=== PATIENT | male | born 1970 | race Caucasian/White ===

== ENCOUNTER 2017-03-17 15:49 | Emergency (ER) | payer BC ==
--- NOTE | 2017-03-17 16:04 | EDM.PDOC ---
ED HPI GENERAL MEDICAL PROBLEM - General Chief Complaint: Skin Complaint Stated Complaint: PT HAS LUMP ON BACK Time Seen by Provider: 03/17/17 15:55 Source of Information: Reports: Patient History Limitations: Reports: No Limitations - History of Present Illness INITIAL COMMENTS - FREE TEXT/NARRATIVE: History of present illness: []Patient had a small lump on his right lower back for years. 1 week ago it started getting larger, red, hot and tender. Denies any fevers or drainage. He saw Dr. Silver for it last week and was put on Keflex. The lesion has worsened, still without drainage. Review of systems: As per history of present illness and below otherwise all systems reviewed and negative. Past medical history: As per history of present illness and as reviewed below otherwise noncontributory. Surgical history: As per history of present illness and as reviewed below otherwise noncontributory. Social history: No reported history of drug or alcohol abuse. Family history: As per history of present illness and as reviewed below otherwise noncontributory. Physical exam: General: Well developed, well nourished in NAD HEENT: Atraumatic, normocephalic, pupils reactive, negative for conjunctival pallor or scleral icterus, mucous membranes moist, throat clear, neck supple, nontender, trachea midline. Lungs: Clear to auscultation, breath sounds equal bilaterally, chest nontender. Heart: S1S2, regular, negative for clicks, rubs, or JVD. Abdomen: Soft, nondistended, nontender. Negative for masses or hepatosplenomegaly. Negative for costovertebral tenderness. Back: Right lower back with 7 cm x 4 cm tender fluctuant lesion without drainage. Pelvis: Stable nontender. Genitourinary: Deferred. Rectal: Deferred. Extremities: Atraumatic, negative for cords or calf pain. Neurovascular unremarkable. Neuro: Awake, alert, oriented. Cranial nerves II through XII unremarkable. Cerebellum unremarkable. Motor and sensory unremarkable throughout. Exam nonfocal. Diagnostics: [] Therapeutics: []I&D of abscess right lower back Impression: []Infected Sebaceous cyst Plan: []Move packing tomorrow, continue Keflex, tramadol for pain, follow-up with Dr. Silver or return here if symptoms change or worsen Definitive disposition and diagnosis as appropriate pending reevaluation and review of above. lower back Pain Score (Numeric/FACES): 3 - Related Data Allergies Allergy/AdvReac Type Severity Reaction Status Date / Time Sulfa (Sulfonamide Allergy Hives Verified 03/17/17 16:01 Antibiotics) Home Meds: Home Meds Cephalexin 500 mg PO BID 03/17/17 [History] traMADol [Ultram] 50 mg PO Q8H PRN #12 tablet 03/17/17 [Rx] Social & Family History - Tobacco Use Smoking Status *Q: Current Every Day Smoker Years of Tobacco use: 20 - Recreational Drug Use Recreational Drug Use: No ED ROS GENERAL - Review of Systems Review Of Systems: See Below (See history of present illness) ED EXAM, SKIN/RASH Exam: See Below (See history of present illness) ED SKIN PROCEDURES - I&D Site: Low back Skin prep: Providone-Iodine (Betadine) Local anesthesia: Lidocaine: 1% Plain Local Anesthesia - Bupivicaine (Marcaine): 0.5% Plain Local Anesthetic Volume: 5cc Area Incised With: 11 Blade Drainage: Purulent, Large Amount Probed to Break Up Loculations: Yes Packed With: 1/4 in. Iodoform Sterile Dressinx4(s) Complications: No Course - Vital Signs Last Recorded V/S: Last Vital Signs Temp 36.8 C 03/17/17 16:01 Pulse 97 03/17/17 16:38 Resp 16 03/17/17 16:38 BP 168/107 H 03/17/17 16:38 Pulse Ox 96 03/17/17 16:38 - Orders/Labs/Meds Meds: Medications Discontinued Medications Generic Name Dose Route Start Last Admin Trade Name Bethany PRN Reason Stop Dose Admin Bupivacaine HCl 10 ml 03/17/17 16:05 03/17/17 16:38 Sensorcaine-Mpf 0.5% INJECT 03/17/17 16:06 10 ml ONETIME ONE Administration Bupivacaine HCl Confirm 03/17/17 16:12 Sensorcaine-Mpf 0.5% Administered 03/17/17 16:13 Dose 10 ml .ROUTE .STK-MED ONE Lidocaine HCl 20 ml 03/17/17 16:05 03/17/17 16:37 Xylocaine 1% INJECT 03/17/17 16:06 20 ml ONETIME ONE Administration Departure - Departure Time of Disposition: 16:39 Disposition: Home, Self-Care 01 Condition: good Clinical Impression: Abscess, Infected sebaceous cyst of skin - Discharge Information Prescriptions: traMADol [Ultram] 50 mg PO Q8H PRN #12 tablet PRN Reason: Pain Referrals: PCP,None [Primary Care Provider] - Forms: ED Department Discharge Additional Instructions: The following information is given to patients seen in the emergency department who are being discharged to home. This information is to outline your options for follow-up care. We provide all patients seen in our emergency department with a follow-up referral. The need for follow-up, as well as the timing and circumstances, are variable depending upon the specifics of your emergency department visit. If you don't have a primary care physician on staff, we will provide you with a referral. We always advise you to contact your personal physician following an emergency department visit to inform them of the circumstance of the visit and for follow-up with them and/or the need for any referrals to a consulting specialist. The emergency department will also refer you to a specialist when appropriate. This referral assures that you have the opportunity for follow-up care with a specialist. All of these measure are taken in an effort to provide you with optimal care, which includes your follow-up. Under all circumstances we always encourage you to contact your private physician who remains a resource for coordinating your care. When calling for follow-up care, please make the office aware that this follow-up is from your recent emergency room visit. If for any reason you are refused follow-up, please contact the [facility] Emergency Department at and asked to speak to the emergency department charge nurse. Continue Keflex as directed, tramadol and/or Motrin for pain, heat to area, remove packing tomorrow and follow-up with Dr. Silver as scheduled. Return here if any symptoms worsen or change. [facility] Primary [facility] [place] [id number]
[2017-03-17] MEDS ORDERED: Lidocaine 1% 20 ML MDV INJECT ONE (16:05)
[2017-03-17] MEDS ORDERED: Bupivacaine 0.5% 10 ML SDV INJECT ONE (16:05)
[2017-03-17] MEDS ORDERED: Bupivacaine 0.5% 10 ML SDV ONE (16:12)
[2017-03-17 16:39] VITALS: BP 168/107
== END 2017-03-17 17:05 | disposition home or self-care (01) ==
LOC: MW.ED 15:49
DX: L02.212 Cutaneous abscess of back [any part, except buttock and flank] (principal); L72.3 Sebaceous cyst; F17.210 Nicotine dependence, cigarettes, uncomplicated; Z88.2 Allergy status to sulfonamides
CPT/HCPCS: 10060; 99282; 99283

== ENCOUNTER 2017-04-06 13:00 | Emergency (ER) | payer BC ==
--- NOTE | 2017-04-06 13:29 | EDM.PDOC ---
ED HPI GENERAL MEDICAL PROBLEM - General Chief Complaint: Skin Complaint Stated Complaint: CYST ON HIS BACK Time Seen by Provider: 04/06/17 13:11 - History of Present Illness INITIAL COMMENTS - FREE TEXT/NARRATIVE: HISTORY AND PHYSICAL: History of present illness: Patient 46-year-old white male presents with a concern of cutaneous lesions to his right lower back he's had these prior they have been incised and drained on prior occasions and he has had recurrence he recently finished a course of Keflex he denies fever chills nausea vomiting Review of systems: As per history of present illness and below otherwise all systems reviewed and negative. Past medical history: As per history of present illness and as reviewed below otherwise noncontributory. Surgical history: As per history of present illness and as reviewed below otherwise noncontributory. Social history: No reported history of drug or alcohol abuse. Family history: As per history of present illness and as reviewed below otherwise noncontributory. Physical exam: HEENT: Atraumatic, normocephalic, pupils reactive, negative for conjunctival pallor or scleral icterus, mucous membranes moist, throat clear, neck supple, nontender, trachea midline. Lungs: Clear to auscultation, breath sounds equal bilaterally, chest nontender. Heart: S1S2, regular, negative for clicks, rubs, or JVD. Abdomen: Soft, nondistended, nontender. Negative for masses or hepatosplenomegaly. Negative for costovertebral tenderness. Pelvis: Stable nontender. Genitourinary: Deferred. Rectal: Deferred. Extremities: Atraumatic, negative for cords or calf pain. Neurovascular unremarkable. Neuro: Awake, alert, oriented. Cranial nerves II through XII unremarkable. Cerebellum unremarkable. Motor and sensory unremarkable throughout. Exam nonfocal. Skin: Patient is to mildly tender erythematous areas approximately 2 cm in diameter to the right lower back there is no significant induration there is mild erythema no significant fluctuance. Diagnostics: None Therapeutics: None Impression: #1 recurrent cutaneous lesions right back history of infected sebaceous cyst Definitive disposition and diagnosis as appropriate pending reevaluation and review of above. - Related Data Allergies Allergy/AdvReac Type Severity Reaction Status Date / Time Sulfa (Sulfonamide Allergy Hives Verified 03/17/17 16:01 Antibiotics) Home Meds: Home Meds Cephalexin 500 mg PO BID 03/17/17 [History] traMADol [Ultram] 50 mg PO Q8H PRN #12 tablet 03/17/17 [Rx] Past Medical History HEENT History: Reports: Hard of Hearing Cardiovascular History: Reports: None Respiratory History: Reports: None Gastrointestinal History: Reports: None Genitourinary History: Reports: None Musculoskeletal History: Reports: None Neurological History: Reports: None Psychiatric History: Reports: None Endocrine/Metabolic History: Reports: None Hematologic History: Reports: None Immunologic History: Reports: None Oncologic (Cancer) History: Reports: None Dermatologic History: Reports: None - Infectious Disease History Infectious Disease History: Reports: Chicken Pox - Past Surgical History HEENT Surgical History: Reports: Myringotomy w Tube(s) Social & Family History - Family History Family Medical History: Noncontributory - Tobacco Use Smoking Status *Q: Current Every Day Smoker Years of Tobacco use: 20 Packs/Tins Daily: 0.5 - Caffeine Use Caffeine Use: Reports: Soda - Recreational Drug Use Recreational Drug Use: No ED ROS GENERAL - Review of Systems Review Of Systems: ROS reveals no pertinent complaints other than HPI. ED EXAM, SKIN/RASH Exam: See Below (See dictation) Course - Vital Signs Text/Narrative:: I discussed with patient antibiotics expectant management with close follow-up with general surgery regarding recurrent nature of these and possible excision if not incision and drainage as indicated Departure - Departure Time of Disposition: 13:18 Disposition: Home, Self-Care 01 Condition: Good Clinical Impression: Cellulitis - Discharge Information Forms: ED Department Discharge Additional Instructions: The following information is given to patients seen in the emergency department who are being discharged to home. This information is to outline your options for follow-up care. We provide all patients seen in our emergency department with a follow-up referral. The need for follow-up, as well as the timing and circumstances, are variable depending upon the specifics of your emergency department visit. If you don't have a primary care physician on staff, we will provide you with a referral. We always advise you to contact your personal physician following an emergency department visit to inform them of the circumstance of the visit and for follow-up with them and/or the need for any referrals to a consulting specialist. The emergency department will also refer you to a specialist when appropriate. This referral assures that you have the opportunity for followup care with a specialist. All of these measure are taken in an effort to provide you with optimal care, which includes your followup. Under all circumstances we always encourage you to contact your private physician who remains a resource for coordinating your care. When calling for followup care, please make the office aware that this follow-up is from your recent emergency room visit. If for any reason you are refused follow-up, please contact the [facility] emergency department at and asked to speak to the emergency department charge nurse. [facility] - General Surgery Professional Building [address] [place] [address], [address] [place] [address] Clindamycin as prescribed keep scheduled appointment with general surgery on April 19 return as needed as discussed
== END 2017-04-06 13:50 | disposition home or self-care (01) ==
LOC: MW.ED 13:00
CPT/HCPCS: 99282; 99283

== ENCOUNTER 2017-10-26 03:36 | Emergency (ER) | payer BC ==
--- NOTE | 2017-10-26 04:04 | EDM.PDOC ---
ED HPI GENERAL MEDICAL PROBLEM - General Chief Complaint: Back Pain or Injury Stated Complaint: LEFT SIDE PAIN Time Seen by Provider: 10/26/17 04:04 Source of Information: Reports: Patient - History of Present Illness INITIAL COMMENTS - FREE TEXT/NARRATIVE: HISTORY AND PHYSICAL: History of present illness: [Patient presents with a posterior rib pain that began after a single cough episode over the last several days, I can reproduce pain posteriorly and at T5 distribution he has no fever nausea vomiting diarrhea constipation chest pain shortness breath headache dizziness or palpitation no bowel or urine symptoms ] Patient rates pain 7 out of 10 nonradiating, pain is keeping him awake at night which has prompted his visit tonight Review of systems: As per history of present illness and below otherwise all systems reviewed and negative. Past medical history: As per history of present illness and as reviewed below otherwise noncontributory. Surgical history: As per history of present illness and as reviewed below otherwise noncontributory. Social history: No reported history of drug or alcohol abuse. Family history: As per history of present illness and as reviewed below otherwise noncontributory. Physical exam: HEENT: Atraumatic, normocephalic, pupils reactive, negative for conjunctival pallor or scleral icterus, mucous membranes moist, throat clear, neck supple, nontender, trachea midline. Lungs: Clear to auscultation, breath sounds equal bilaterally, chest tenderness at T5 distribution on the left Heart: S1S2, regular, negative for clicks, rubs, or JVD. Abdomen: Soft, nondistended, nontender. Negative for masses or hepatosplenomegaly. Negative for costovertebral tenderness. Pelvis: Stable nontender. Genitourinary: Deferred. Rectal: Deferred. Extremities: Atraumatic, negative for cords or calf pain. Neurovascular unremarkable. Neuro: Awake, alert, oriented. Cranial nerves II through XII unremarkable. Cerebellum unremarkable. Motor and sensory unremarkable throughout. Exam nonfocal. Diagnostics: [Chest x-ray Rib 2 views on the left ] Therapeutics: [Azithromycin 500 mg by mouth daily #6 no refill Searsmont] Follow-up with primary care in [address] no contrast on outpatient basis radiology recommendation Impression: [Clinically question rib fracture Nodular density left posterior rib 5 Slight infiltrate on chest x-ray Small pleural effusion on the left] Definitive disposition and diagnosis as appropriate pending reevaluation and review of above. middle back Pain Score (Numeric/FACES): 8 - Related Data Allergies Allergy/AdvReac Type Severity Reaction Status Date / Time hydrochlorothiazide Allergy Rash Verified 10/26/17 03:48 Sulfa (Sulfonamide Allergy Hives Verified 10/26/17 03:48 Antibiotics) Home Meds: Home Meds . [No Known Home Meds] 10/26/17 [History] Past Medical History - Past Health History Medical/Surgical History: Denies Medical/Surgical History HEENT History: Reports: Hard of Hearing Cardiovascular History: Reports: Hypertension Respiratory History: Reports: None Gastrointestinal History: Reports: None Genitourinary History: Reports: None Musculoskeletal History: Reports: None Neurological History: Reports: None Psychiatric History: Reports: None Endocrine/Metabolic History: Reports: None Hematologic History: Reports: None Immunologic History: Reports: None Oncologic (Cancer) History: Reports: None Dermatologic History: Reports: None Other Dermatologic History: cysts on low back - Infectious Disease History Infectious Disease History: Reports: Chicken Pox - Past Surgical History HEENT Surgical History: Reports: Myringotomy w Tube(s) Social & Family History - Family History Family Medical History: Noncontributory - Tobacco Use Smoking Status *Q: Current Every Day Smoker Years of Tobacco use: 20 Packs/Tins Daily: 1 - Caffeine Use Caffeine Use: Reports: Soda - Recreational Drug Use Recreational Drug Use: No Drug Use in Last 12 Months: No ED ROS GENERAL - Review of Systems Review Of Systems: ROS reveals no pertinent complaints other than HPI. ED EXAM, GENERAL - Physical Exam Exam: See Below Course - Vital Signs Last Recorded V/S: Last Vital Signs Temp 98.5 F 10/26/17 03:36 Pulse 111 H 10/26/17 03:36 Resp 18 10/26/17 03:36 BP 154/89 H 10/26/17 03:36 Pulse Ox 94 L 10/26/17 03:36 - Orders/Labs/Meds Orders: Active Orders 24 hr Category Date Time Status Chest 2V [CR] Stat Exams 10/26/17 03:48 Taken Ribs 2V wo Chest Lt [CR] Stat Exams 10/26/17 04:17 Taken Meds: Medications Discontinued Medications Generic Name Dose Route Start Last Admin Trade Name Freq PRN Reason Stop Dose Admin Hydrocodone Bitart/Acetaminophen 1 tab 10/26/17 04:17 10/26/17 04:23 [place] 325-5 Mg PO 10/26/17 04:18 1 tab ONETIME ONE Administration Departure - Departure Time of Disposition: 04:57 Disposition: Home, Self-Care 01 Condition: Good Clinical Impression: Rib pain on left side, Pleural effusion, Nodular radiologic density, Pulmonary infiltrate on chest x-ray - Discharge Information Referrals: George Silver MD [Primary Care Provider] - Forms: ED Department Discharge Additional Instructions: Medication as prescribed Return if symptoms persist or worsen Follow-up with primary care provider in 2 weeks for a noncontrasted chest CT on an outpatient basis Radiology is recommending CT for a nodular density overlying the fifth posterior rib, this is in the same distribution of your pain [facility] [address] [place] [address] The following information is given to patients seen in the emergency department who are being discharged to home. This information is to outline your options for follow-up care. We provide all patients seen in our emergency department with a follow-up referral. The need for follow-up, as well as the timing and circumstances, are variable depending upon the specifics of your emergency department visit. If you don't have a primary care physician on staff, we will provide you with a referral. We always advise you to contact your personal physician following an emergency department visit to inform them of the circumstance of the visit and for follow-up with them and/or the need for any referrals to a consulting specialist. The emergency department will also refer you to a specialist when appropriate. This referral assures that you have the opportunity for follow-up care with a specialist. All of these measure are taken in an effort to provide you with optimal care, which includes your follow-up. Under all circumstances we always encourage you to contact your private physician who remains a resource for coordinating your care. When calling for follow-up care, please make the office aware that this follow-up is from your recent emergency room visit. If for any reason you are refused follow-up, please contact the [facility] emergency department at and asked to speak to the emergency department charge nurse. - My Orders Last 24 Hours: My Active Orders 10/26/17 03:48 Chest 2V [CR] Stat 10/26/17 04:17 Ribs 2V wo Chest Lt [CR] Stat - Assessment/Plan Last 24 Hours: My Active Orders 10/26/17 03:48 Chest 2V [CR] Stat 10/26/17 04:17 Ribs 2V wo Chest Lt [CR] Stat
[2017-10-26] MEDS ORDERED: Acetaminophen/HYDROcodone 325-5 MG Tab PO ONE (04:17)
[2017-10-26 05:12] VITALS: BP 164/96
--- NOTE | 2017-10-26 16:55 | CR ---
EXAM DATE: 10/26/17 PATIENT'S AGE: 47 Patient: [facility] Facility: [place], [place] Site . Site : 1970 Study: XRay Chest [id number]/[id number] 4:04:25 AM Ordering Physician: Doctor Maza Final Report: INDICATION: R side soreness, SOB, CP, smoker TECHNIQUE: Chest 2 views COMPARISON: September 05, 2012 FINDINGS: Cardiovascular and mediastinum: Heart size and vasculature are normal in caliber and appearance. Mediastinum is within normal limits. Lungs and pleural spaces: Left lower lobe consolidation. Small left-sided pleural effusion. Apparent nodular density overlying the 5th left posterior rib. No pneumothorax. Bones and soft tissues: Healed anterior left 2nd rib fracture. IMPRESSION: 1. Left lower lobe consolidation. Please correlate for signs of pneumonia. There is an associated small left-sided pleural effusion. 2. Apparent nodular density overlying the 5th left posterior rib. This is new compared to the previous examination of September 05, 2012. Recommend comparison with any more recent prior imaging of the chest and/or follow-up with unenhanced CT of the chest on an outpatient basis. Dictated by Thanh Galicia MD @ 10/26/2017 4:18:28 AM Dictated by: Thanh Galicia MD @ 10/26/2017 04:24:43 (Electronic Signature) Report Signed by Proxy. [facility] HOSPITALAicha
--- NOTE | 2017-10-26 16:56 | CR ---
EXAM DATE: 10/26/17 PATIENT'S AGE: 47 Patient: [facility] Facility: [place], [place] Site . Site : 1970 Study: XRay Chest Ribs 2v [id number] 4:39:32 AM Ordering Physician: Paula Solis Final Report: INDICATION: L side posterior rib pain TECHNIQUE: Three views of the left lower rib cage. COMPARISON: None. FINDINGS/IMPRESSION : Acute appearing left anterior 6th left rib and 7th left rib. Please see chest radiograph performed same day for further details. Dictated by Thanh Galicia MD @ 10/26/2017 5:07:34 AM Dictated by: Thanh Galicia MD @ 10/26/2017 05:07:45 (Electronic Signature) Report Signed by Proxy. [facility]
== END 2017-10-26 05:15 | disposition home or self-care (01) ==
LOC: MW.ED 03:36
DX: J90 Pleural effusion, not elsewhere classified (principal); R91.8 Other nonspecific abnormal finding of lung field; R07.81 Pleurodynia; F17.210 Nicotine dependence, cigarettes, uncomplicated; I10 Essential (primary) hypertension; Z88.2 Allergy status to sulfonamides; Z88.8 Allergy status to other drugs, medicaments and biological substances
CPT/HCPCS: 71046; 71100; 99283; A9270

== ENCOUNTER 2018-11-24 08:15 | Emergency (ER) | payer BC ==
--- NOTE | 2018-11-24 08:28 | EDM.PDOC ---
ED HPI GENERAL MEDICAL PROBLEM - General Chief Complaint: General Stated Complaint: COUGHING Time Seen by Provider: 11/24/18 08:23 - History of Present Illness INITIAL COMMENTS - FREE TEXT/NARRATIVE: HISTORY AND PHYSICAL: History of present illness: Patient's a 48-year-old white male who presents with concern of left rib injury he states he felt a muscle pull when he was coughing earlier today a similar episode approximately 1 year prior in which he thought he had sustained a rib fracture secondary to harsh coughing he denies shortness of breath he did take some Motrin prior to arrival is been no nausea vomiting fever chills he did receive influenza immunization this year. Review of systems: As per history of present illness and below otherwise all systems reviewed and negative. Past medical history: As per history of present illness and as reviewed below otherwise noncontributory. Surgical history: As per history of present illness and as reviewed below otherwise noncontributory. Social history: No reported history of drug or alcohol abuse. Family history: As per history of present illness and as reviewed below otherwise noncontributory. Physical exam: HEENT: Atraumatic, normocephalic, pupils reactive, negative for conjunctival pallor or scleral icterus, mucous membranes moist, throat clear, neck supple, nontender, trachea midline. Lungs: Clear to auscultation, breath sounds equal bilaterally, chest tenderness noted in the left posterior axillary region at the level of the seventh through ninth ribs. No crepitation. Heart: S1S2, regular, negative for clicks, rubs, or JVD. Abdomen: Soft, nondistended, nontender. Negative for masses or hepatosplenomegaly. Negative for costovertebral tenderness. Pelvis: Stable nontender. Genitourinary: Deferred. Rectal: Deferred. Extremities: Atraumatic, negative for cords or calf pain. Neurovascular unremarkable. Neuro: Awake, alert, oriented. Cranial nerves II through XII unremarkable. Cerebellum unremarkable. Motor and sensory unremarkable throughout. Exam nonfocal. Diagnostics: X-ray left ribs with chest Therapeutics: Hydrocodone 10 mg by mouth Impression: #1 muscle skeletal pain rule out left rib/intercostal injury Definitive disposition and diagnosis as appropriate pending reevaluation and review of above. - Related Data Allergies Allergy/AdvReac Type Severity Reaction Status Date / Time hydrochlorothiazide Allergy Rash Verified 11/24/18 08:27 Sulfa (Sulfonamide Allergy Hives Verified 11/24/18 08:27 Antibiotics) Home Meds: Home Meds . [No Known Home Meds] 10/26/17 [History] Past Medical History - Past Health History Medical/Surgical History: Denies Medical/Surgical History HEENT History: Reports: Hard of Hearing Cardiovascular History: Reports: Hypertension Respiratory History: Reports: None Gastrointestinal History: Reports: None Genitourinary History: Reports: None Musculoskeletal History: Reports: None Neurological History: Reports: None Psychiatric History: Reports: None Endocrine/Metabolic History: Reports: None Hematologic History: Reports: None Immunologic History: Reports: None Oncologic (Cancer) History: Reports: None Dermatologic History: Reports: None Other Dermatologic History: cysts on low back - Infectious Disease History Infectious Disease History: Reports: Chicken Pox - Past Surgical History HEENT Surgical History: Reports: Myringotomy w Tube(s) Social & Family History - Family History Family Medical History: Noncontributory - Caffeine Use Caffeine Use: Reports: Soda ED ROS GENERAL - Review of Systems Review Of Systems: ROS reveals no pertinent complaints other than HPI. ED EXAM, GENERAL - Physical Exam Exam: See Below (See dictation) Course - Vital Signs Last Recorded V/S: Last Vital Signs Temp 36.6 C 11/24/18 08:24 Pulse 106 H 11/24/18 08:24 Resp 18 11/24/18 08:24 BP 167/95 H 11/24/18 08:24 Pulse Ox 94 L 11/24/18 08:24 - Orders/Labs/Meds Meds: Medications Discontinued Medications Generic Name Dose Route Start Last Admin Trade Name [place] PRN Reason Stop Dose Admin Hydrocodone Bitart/Acetaminophen 1 tab 11/24/18 08:30 11/24/18 08:34 [place] 325-10 Mg PO 11/24/18 08:31 1 tab ONETIME ONE Administration Departure - Departure Time of Disposition: 09:34 Disposition: Home, Self-Care 01 Condition: Good Clinical Impression: Rib injury - Discharge Information Referrals: George Silver MD [Primary Care Provider] - Forms: ED Department Discharge Additional Instructions: The following information is given to patients seen in the emergency department who are being discharged to home. This information is to outline your options for follow-up care. We provide all patients seen in our emergency department with a follow-up referral. The need for follow-up, as well as the timing and circumstances, are variable depending upon the specifics of your emergency department visit. If you don't have a primary care physician on staff, we will provide you with a referral. We always advise you to contact your personal physician following an emergency department visit to inform them of the circumstance of the visit and for follow-up with them and/or the need for any referrals to a consulting specialist. The emergency department will also refer you to a specialist when appropriate. This referral assures that you have the opportunity for followup care with a specialist. All of these measure are taken in an effort to provide you with optimal care, which includes your followup. Under all circumstances we always encourage you to contact your private physician who remains a resource for coordinating your care. When calling for followup care, please make the office aware that this follow-up is from your recent emergency room visit. If for any reason you are refused follow-up, please contact the [facility] emergency department at and asked to speak to the emergency department charge nurse. Hydrocodone as prescribed follow-up primary medical doctor as needed as discussed return as needed as discussed
[2018-11-24] MEDS ORDERED: Acetaminophen/HYDROcodone 325-10 MG Tab PO ONE (08:30)
--- NOTE | 2018-11-24 09:08 | CR ---
INDICATION: Upper left rib pain for 1 day. No history of trauma provided. TECHNIQUE: PA chest and 3 detailed views of the left-sided ribs. COMPARISON: Two-view chest October 26, 2017. No previous rib x-rays were sent for comparison. FINDINGS: Clear lungs. Overall heart size and pulmonary vascularity are normal. There is irregularity of the left posterior lateral and anterolateral 6th and 7th ribs which should reflect rib fractures age indeterminate. These were described on October 26, 2017. No new rib fractures are confluent identified. IMPRESSION: Rib fracture deformities of the left 6th and 7th ribs. These were described on a previous study from October 26, 2017. It is uncertain why the detailed rib views from that earlier date were not sent. Dictated by Vadim Muse MD @ Nov 24 2018 9:03AM Signed by Dr. Vadim Muse @ Nov 24 2018 9:07AM
[2018-11-24 09:46] VITALS: BP 143/107
== END 2018-11-24 09:45 | disposition home or self-care (01) ==
LOC: MW.ED 08:15
DX: S29.9XXA Unspecified injury of thorax, initial encounter (principal); I10 Essential (primary) hypertension; Z88.2 Allergy status to sulfonamides; Z88.8 Allergy status to other drugs, medicaments and biological substances; X50.9XXA Other and unspecified overexertion or strenuous movements or postures, initial encounter
CPT/HCPCS: 71101; 99283; A9270

== ENCOUNTER 2022-04-01 20:37 | Emergency (ER) | payer BC ==
[2022-04-01] MEDS ORDERED: Amoxicillin/Clavulanate K 875-125 MG Tab PO ONE (20:57)
[2022-04-01] MEDS ORDERED: Lidocaine 2% Viscous Solution 100 ML Bottle PO ONE (20:57)
[2022-04-01] MEDS ORDERED: Benzocaine 20% Topical Spray UD MUCMEM ONE (20:57)
[2022-04-01] MEDS ORDERED: Lidocaine 2% Viscous Solution 15 ML UD PO ONE (21:02)
[2022-04-01 21:16] VITALS: BP 150/100; PULSE 92
== END 2022-04-01 21:16 | disposition home or self-care (01) ==
LOC: MW.ED 20:37
DX: K04.7 Periapical abscess without sinus (principal); I10 Essential (primary) hypertension; Z88.2 Allergy status to sulfonamides; Z88.8 Allergy status to other drugs, medicaments and biological substances; Z79.899 Other long term (current) drug therapy; Z79.84 Long term (current) use of oral hypoglycemic drugs
CPT/HCPCS: 99282; A9270; 99283